=== PATIENT | male | born 1925 | race Caucasian/White ===

== ENCOUNTER 2016-10-12 03:08 | Observation (INO) | payer OTHER, MEDICARE ==
[~2016-10-12] VITALS: Ht 177.8 cm; Wt 86.0 kg
[~2016-10-12 03:08] MED LIST: ALENDRONATE SOD70 MG PO; CARDIZEM LA PO; CARVEDILOL6.25 MG PO; COZAAR100 MG PO; LASIX20 MG PO; LASIX40 MG PO; LATANOPROST0.005 % OP; LEVAQUIN500 MG PO; PLAVIX75 MG PO; PRAVACHOL20 MG PO; PRENATABS RX PO; TRAMADOL HCL50 MG PO; VITAMIN D H1000 UNIT PO; XARELTO10 MG PO
--- NOTE | 2016-10-12 08:39 | ED NURSING NOTES ---
Clinical Report - Nurses [facility] [address] [place] [address] 10/12/2016 3:08 Patient: CONRAD MILTON TRIAGE Triage time 03:14. Acuity: LEVEL 2. Chief Complaint: PAIN TO RIGHT EYE. --03:27 Manjinder aHwkins R.N. 03:14 10/12/16. BP: 175/72. HR: 66. RR: 20. O2 saturation: 95%. Temp: 97.6 F. Pain level now 04/07. --03:27 Manjinder Hawkins R.N. Weight: 81.7 kg stated. Height/Length: 70 inches Per Patient. BMI: 25.8. --03:26 Manjinder Hawkins R.N. Medications Carvedilol Oral (Tablet 6.25 mg) 1 tablet, daily. Furosemide Oral 40 mg, daily. Losartan Potassium Oral 100 mg, daily. Plavix Oral 75 mg, daily. Triamcinolone Acetonide External. Vitamin D Oral. Xarelto Oral (Tablet 10 mg) 1 tablet, daily. --03:18 Manjinder Hawkins R.N. Pravastatin Sodium Oral 20 mg. --03:19 Manjinder Hawkins R.N. Alendronate Sodium Oral (Tablet 70 mg). --03:20 Manjinder Hawkins R.N. Augmentin Oral (Tablet 875-125 mg). --03:21 Manjinder Hawkins R.N. Allergies No Known Drug Allergy. --03:18 Manjinder Hawkins R.N. History Arrived by private vehicle. Historian: patient. Accompanied by family. Primary physician (Corie Guillory). This is a new problem and onset was abrupt. (a week). ( Pt is having pain in the right eye with no vision changes. Pt stated the pain is pulsating and radiates to the side of the head. The eye pain started a week ago. Not photophobia. Pt was just in [place] for sx. Pt stated they removed plaque from the artery in his leg. Pt has a dressing on the right side of the groin that is dry and intact.). 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 PAST MEDICAL HX: Glaucoma. SOCIAL HX: Former smoker. Occasional alcohol use; consumes two beers a day. No drug use. --03:27 Manjinder Hawkins R.N. PROBLEMS: Atypical Chest Pain. Congestive Heart Failure. Vomiting. Cancer. Pneumonia. Changed Mental Status. Weakness. Atrial Fibrillation. Hypertension. Hypercholesterolemia. Glaucoma. --03:25 Manjinder Hawkins R.N. Interventions ID band on patient. To treatment room. --03:27 Manjinder Hawkins R.N. PHYSICAL ASSESSMENT ( Pt is having sharp stabbing pulsating pain in the right eye that radiates into the head. Pt has a dry and intact dressing on the right side of his growing, due to a sx at [place], scrapping out the plaque in the artery. Pt is taking augmentin for an infection in the right foot. Pt has dressing on the big toe and second toe, both are dry and intact.). GENERAL / NEURO / PSYCH: Alert. Appears in no acute distress. Appears in pain. HEENT: No facial asymmetry noted. Pupils equal, round and reactive to light. EOM intact. Right ear within normal limits. Left ear within normal limits. Mouth inspection within normal limits. Pharynx within normal limits. RESPIRATORY: Respirations not labored. CVS: Capillary refill less than 2 seconds. SKIN: Skin is warm and dry. Normal skin turgor. --03:29 Manjinder Hawkins R.N. HEENT: ( Denies any vision changes.). --03:29 Manjinder Hawkins R.N. NURSING PROGRESS NOTES Patient gowned. Head of bed elevated 30 degrees. Reassurance given. Two patient identifiers checked. Call light placed in reach. Side rails up x 2. Bed placed in lowest position. Brakes of bed on. --03:30 Manjinder Hawkins R.N. 04:45 10/12/2016 Site #1 started via IV in the right forearm with an 22g angiocath; one attempt. Blood drawn: rainbow set. Labeled in the presence of the patient and sent to the lab. Saline lock flushed with saline. --04:51 Apollo Goncalves R.N. 04:53 10/12/2016 Morphine IVP 4 mg given over 1 minute(s) via site #1. Allergies verified, confirmed 5 rights and sedative warning given to the patient. IV patency established. IV site checked: no pain, redness, or swelling. IV flushed thoroughly pre- and post-medication administration. IVP given by RN. --04:53 Manjinder Hawkins R.N. 04:57 10/12/2016 FLUORESCEIN Opth soln 1 Strip given. Given in the right eye. Allergies verified and confirmed 5 rights. (done by MD). --04:57 Manjinder Hawkins R.N. 04:57 10/12/2016 Proparacaine Eye Drops 1 drop given. Given in the right eye. Allergies verified and confirmed 5 rights. (done by MD). --04:57 Manjinder Hawkins R.N. 06:32 10/12/2016 Morphine IVP 4 mg given over 1 minute(s) via site #1. Allergies verified, confirmed 5 rights and sedative warning given to the patient and patient's family. IV patency established. IV site checked: no pain, redness, or swelling. IV flushed thoroughly pre- and post-medication administration. IVP given by RN. --06:33 Manjinder Hawkins R.N. ( MD at bedside doing eye exam.). --06:33 Manjinder Hawkins R.N. 06:33 10/12/16. BP: 124/55. HR: 97. RR: 15. O2 saturation: 97%. Pain level now 6/10. --06:33 Manjinder Hawkins R.N. 07:49 10/12/16. ( Pt's too tired to wait, sent home to rest. Pt's visual acuity Right eye 20/200, Left eye 20/50, Both eyes 20/200). --07:49 Brooklyn Ferrer R.N. 07:57 10/12/16. HR: 56. RR: 20. O2 saturation: 100%. --07:58 Brooklyn Ferrer R.N. ( color television console monitor dc'd per verbal order ERMD). --07:58 Brooklyn Ferrer R.N. 08:05 10/12/2016 SOLU-MEDROL (MethylPREDNISolone Sodium Succ) IVP 250 mg given over 5 minute(s) via site #1. Allergies verified and confirmed 5 rights. --08:10 Brooklyn Ferrer R.N. DISPOSITION / DISCHARGE 09:34 10/12/16. Report was given to a nurse via a phone call. Report included patient's care, treatment, medications, reviewed medication reconcilliation, and condition (including any recent changes or anticipated changes). All questions were answered. Report was acknowledged and care was transferred. Bed obtained and ready. --09:34 Brooklyn Ferrer R.N. 09:40 10/12/16. --09:40 Brooklyn Ferrer R.N. 09:39 10/12/16. BP: 131/89. HR: 60 (irregular). RR: 19. O2 saturation: 96%. Temp: 97.7 F. Pain level now: 0/10. --09:40 Brooklyn Ferrer R.N. 09:41 10/12/16. ( FT notified to take pt up to room.). --09:41 Brooklyn Ferrer R.N. 09:52 10/12/16. 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 --09:52 Brooklyn Ferrer R.N. Departure time: 09:52. --09:52 Brooklyn Ferrer R.N. Locked/Released at 10/12/2016 9:53 by Brooklyn Ferrer R.N.
--- NOTE | 2016-10-12 08:39 | ED ORDER SUMMARY ---
..... Patient: CONRAD MILTON OrderSheet [facility] VisitID: [id number] [place] [address] 89y, M Registration Date/Time: 10/12/2016 ORDER SHEET Weight: 81.7 kg (stated) Allergies: No Known Drug Allergy GENERAL ORDERS: CBC w Diff Urgent (03:49 10/12/2016 Mal Hardin) (Ack 3:56 ALawrence ER Tech1) (4:51 DDavis R.N.) CMP Urgent (03:49 10/12/2016 Mal Hardin) (Ack 3:56 ALawrence ER Tech1) (4:51 DDavis R.N.) ESR Urgent (03:49 10/12/2016 Mal Hardin) (Ack 3:56 ALawrence ER Tech1) (4:51 DDavis R.N.) CRP Urgent (03:49 10/12/2016 Mal Hardin) (Ack 3:56 ALawrence ER Tech1) (4:51 DDavis R.N.) Consult - Ophthalmology (06:54 10/12/2016 Mal Hardin) (7:01 TLewis R.N.) Visual Acuity (07:36 10/12/2016 Mal Hardin) (7:54 LSullivan R.N.) PT with INR Urgent (09:07 10/12/2016 Mal Hardin) (Ack 9:16 RKarlynette) (9:53 LSullivan R.N.) PTT Urgent (09:07 10/12/2016 Mal Hardin) (Ack 9:16 RKaruga) (9:53 LSullivan R.N.) MEDICATION ORDERS: Fluorescein Eye Strips 1 strips (bedside) (03:48 10/12/2016 Mal Hardin) (Ack 4:07 HSoule) (4:57 TLewis R.N.) Proparacaine Eye Drops (Solution 0.5 %) 2 drops (place at bedside) (03:49 10/12/2016 Mal Hardin) (Ack 4:07 HSoule) (4:57 TLewis R.N.) IV FLUIDS: Morphine IV 4 mg (HIGH ALERT MEDICATION, NOW) (03:48 10/12/2016 Mal Hardin) (4:53 Ivis R.N.) IV Saline Lock (03:49 10/12/2016 Mal Hardin) (4:51 DDavis R.N.) Morphine IV 4 mg (HIGH ALERT MEDICATION, NOW) (06:16 10/12/2016 Mal Hardin) (6:33 Ivis R.N.) Solu-MEDROL IV 250 mg (NOW) (07:50 10/12/2016 Mal Hardin) (8:10 LSullivan R.N.) ORDER SHEET NOTES: [Electronically signed by Vik Love Dr. (09:38 10/12/2016)] [Electronically signed by Brooklyn Ferrer R.N. (09:53 10/12/2016)] [Electronically locked/signed by Brooklyn Ferrer R.N. (09:53 10/12/2016)]
--- NOTE | 2016-10-12 08:39 | ED ORDER SUMMARY ---
..... Patient: CONRAD MILTON OrderSheet [facility] VisitID: [id number] [place] [address] 89y, M Registration Date/Time: 10/12/2016 ORDER SHEET Weight: 81.7 kg (stated) Allergies: No Known Drug Allergy GENERAL ORDERS: CBC w Diff Urgent (03:49 10/12/2016 Mal Hardin) (Ack 3:56 ALawrence ER Tech1) (4:51 DDavis R.N.) CMP Urgent (03:49 10/12/2016 Mal Hardin) (Ack 3:56 ALawrence ER Tech1) (4:51 DDavis R.N.) ESR Urgent (03:49 10/12/2016 Mal Hardin) (Ack 3:56 ALawrence ER Tech1) (4:51 DDavis R.N.) CRP Urgent (03:49 10/12/2016 Mal Hardin) (Ack 3:56 ALawrence ER Tech1) (4:51 DDavis R.N.) Consult - Ophthalmology (06:54 10/12/2016 Mal Hardin) (7:01 TLewis R.N.) Visual Acuity (07:36 10/12/2016 Mal Hardin) (7:54 LSullivan R.N.) PT with INR Urgent (09:07 10/12/2016 Mal Hardin) (Ack 9:16 RKarlynette) (9:53 LSullivan R.N.) PTT Urgent (09:07 10/12/2016 Mal Hardin) (Ack 9:16 RKaruga) (9:53 LSullivan R.N.) MEDICATION ORDERS: Fluorescein Eye Strips 1 strips (bedside) (03:48 10/12/2016 Mal Hardin) (Ack 4:07 HSoule) (4:57 TLewis R.N.) Proparacaine Eye Drops (Solution 0.5 %) 2 drops (place at bedside) (03:49 10/12/2016 Mal Hardin) (Ack 4:07 HSoule) (4:57 TLewis R.N.) IV FLUIDS: Morphine IV 4 mg (HIGH ALERT MEDICATION, NOW) (03:48 10/12/2016 Mal Hardin) (4:53 Ivis R.N.) IV Saline Lock (03:49 10/12/2016 Mal Hardin) (4:51 DDavis R.N.) Morphine IV 4 mg (HIGH ALERT MEDICATION, NOW) (06:16 10/12/2016 Mal Hardin) (6:33 Ivis R.N.) Solu-MEDROL IV 250 mg (NOW) (07:50 10/12/2016 Mal Hardin) (8:10 LSullivan R.N.) ORDER SHEET NOTES: [Electronically signed by Vik Love Dr. (09:38 10/12/2016)] [Electronically signed by Brooklyn Ferrer R.N. (09:53 10/12/2016)] [Electronically locked/signed by Brooklyn Ferrer R.N. (09:53 10/12/2016)]
--- NOTE | 2016-10-12 08:39 | ED NURSING NOTES ---
Clinical Report - Nurses [facility] [address] [place] [address] 10/12/2016 3:08 Patient: CONRAD MILTON TRIAGE Triage time 03:14. Acuity: LEVEL 2. Chief Complaint: PAIN TO RIGHT EYE. --03:27 Manjinder Hawkins R.N. 03:14 10/12/16. BP: 175/72. HR: 66. RR: 20. O2 saturation: 95%. Temp: 97.6 F. Pain level now 04/07. --03:27 Manjinder Hawkins R.N. Weight: 81.7 kg stated. Height/Length: 70 inches Per Patient. BMI: 25.8. --03:26 Manjinder Hawkins R.N. Medications Carvedilol Oral (Tablet 6.25 mg) 1 tablet, daily. Furosemide Oral 40 mg, daily. Losartan Potassium Oral 100 mg, daily. Plavix Oral 75 mg, daily. Triamcinolone Acetonide External. Vitamin D Oral. Xarelto Oral (Tablet 10 mg) 1 tablet, daily. --03:18 Manjinder Hawkins R.N. Pravastatin Sodium Oral 20 mg. --03:19 Manjinder Hawkins R.N. Alendronate Sodium Oral (Tablet 70 mg). --03:20 Manjinder Hawkins R.N. Augmentin Oral (Tablet 875-125 mg). --03:21 Manjinder Hawkins R.N. Allergies No Known Drug Allergy. --03:18 Manjinder Hawkins R.N. History Arrived by private vehicle. Historian: patient. Accompanied by family. Primary physician (Corie Guillory). This is a new problem and onset was abrupt. (a week). ( Pt is having pain in the right eye with no vision changes. Pt stated the pain is pulsating and radiates to the side of the head. The eye pain started a week ago. Not photophobia. Pt was just in [place] for sx. Pt stated they removed plaque from the artery in his leg. Pt has a dressing on the right side of the groin that is dry and intact.). 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 PAST MEDICAL HX: Glaucoma. SOCIAL HX: Former smoker. Occasional alcohol use; consumes two beers a day. No drug use. --03:27 Manjinder Hawkins R.N. PROBLEMS: Atypical Chest Pain. Congestive Heart Failure. Vomiting. Cancer. Pneumonia. Changed Mental Status. Weakness. Atrial Fibrillation. Hypertension. Hypercholesterolemia. Glaucoma. --03:25 Manjinder Hawkins R.N. Interventions ID band on patient. To treatment room. --03:27 Manjinder Hawkins R.N. PHYSICAL ASSESSMENT ( Pt is having sharp stabbing pulsating pain in the right eye that radiates into the head. Pt has a dry and intact dressing on the right side of his growing, due to a sx at [place], scrapping out the plaque in the artery. Pt is taking augmentin for an infection in the right foot. Pt has dressing on the big toe and second toe, both are dry and intact.). GENERAL / NEURO / PSYCH: Alert. Appears in no acute distress. Appears in pain. HEENT: No facial asymmetry noted. Pupils equal, round and reactive to light. EOM intact. Right ear within normal limits. Left ear within normal limits. Mouth inspection within normal limits. Pharynx within normal limits. RESPIRATORY: Respirations not labored. CVS: Capillary refill less than 2 seconds. SKIN: Skin is warm and dry. Normal skin turgor. --03:29 Manjinder Hawkins R.N. HEENT: ( Denies any vision changes.). --03:29 Manjinder Hawkins R.N. NURSING PROGRESS NOTES Patient gowned. Head of bed elevated 30 degrees. Reassurance given. Two patient identifiers checked. Call light placed in reach. Side rails up x 2. Bed placed in lowest position. Brakes of bed on. --03:30 Manjinder Hawkins R.N. 04:45 10/12/2016 Site #1 started via IV in the right forearm with an 22g angiocath; one attempt. Blood drawn: rainbow set. Labeled in the presence of the patient and sent to the lab. Saline lock flushed with saline. --04:51 Apollo Goncalves R.N. 04:53 10/12/2016 Morphine IVP 4 mg given over 1 minute(s) via site #1. Allergies verified, confirmed 5 rights and sedative warning given to the patient. IV patency established. IV site checked: no pain, redness, or swelling. IV flushed thoroughly pre- and post-medication administration. IVP given by RN. --04:53 Manjinder Hawkins R.N. 04:57 10/12/2016 FLUORESCEIN Opth soln 1 Strip given. Given in the right eye. Allergies verified and confirmed 5 rights. (done by MD). --04:57 Manjinder Hawkins R.N. 04:57 10/12/2016 Proparacaine Eye Drops 1 drop given. Given in the right eye. Allergies verified and confirmed 5 rights. (done by MD). --04:57 Manjinder Hawkins R.N. 06:32 10/12/2016 Morphine IVP 4 mg given over 1 minute(s) via site #1. Allergies verified, confirmed 5 rights and sedative warning given to the patient and patient's family. IV patency established. IV site checked: no pain, redness, or swelling. IV flushed thoroughly pre- and post-medication administration. IVP given by RN. --06:33 Manjinder Hawkins R.N. ( MD at bedside doing eye exam.). --06:33 Manjinder Hawkins R.N. 06:33 10/12/16. BP: 124/55. HR: 97. RR: 15. O2 saturation: 97%. Pain level now 6/10. --06:33 Manjinder Hawkins R.N. 07:49 10/12/16. ( Pt's too tired to wait, sent home to rest. Pt's visual acuity Right eye 20/200, Left eye 20/50, Both eyes 20/200). --07:49 Brooklyn Ferrer R.N. 07:57 10/12/16. HR: 56. RR: 20. O2 saturation: 100%. --07:58 Brooklyn Ferrer R.N. ( telemetry monitor dc'd per verbal order ERMD). --07:58 Brooklyn Ferrer R.N. 08:05 10/12/2016 SOLU-MEDROL (MethylPREDNISolone Sodium Succ) IVP 250 mg given over 5 minute(s) via site #1. Allergies verified and confirmed 5 rights. --08:10 Brooklyn Ferrer R.N. DISPOSITION / DISCHARGE 09:34 10/12/16. Report was given to a nurse via a phone call. Report included patient's care, treatment, medications, reviewed medication reconcilliation, and condition (including any recent changes or anticipated changes). All questions were answered. Report was acknowledged and care was transferred. Bed obtained and ready. --09:34 Brooklyn Ferrer R.N. 09:40 10/12/16. --09:40 Brooklyn Ferrer R.N. 09:39 10/12/16. BP: 131/89. HR: 60 (irregular). RR: 19. O2 saturation: 96%. Temp: 97.7 F. Pain level now: 0/10. --09:40 Brooklyn Ferrer R.N. 09:41 10/12/16. ( FT notified to take pt up to room.). --09:41 Brooklyn Ferrer R.N. 09:52 10/12/16. 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 --09:52 Brooklyn Ferrer R.N. Departure time: 09:52. --09:52 Brooklyn Ferrer R.N. Locked/Released at 10/12/2016 9:53 by Brooklyn Ferrer R.N.
--- NOTE | 2016-10-12 08:39 | ED CLINICAL REPORT ---
Clinical Report - Physicians/Mid Levels [facility] [address] [place] [address] 10/12/2016 3:08 Patient: CONRAD MILTON Arrived- By private vehicle. Historian- patient. HISTORY OF PRESENT ILLNESS Chief Complaint: HEADACHE. Is still present (staying the same). This started about a week. It was gradual in onset and has been constant but is not gone now. Patient was last known well (over a week ago). It is described as sharp. Located in the right temporal region and region of the right eye. No neck pain. Not located in the facial region. At its maximum, severity described as moderate. When seen in the E.D., severity described as moderate. Modifying factors: relieved by nothing. Not worsened by anything. No preceding symptoms, blurred vision, photophobia, associated nausea or numbness. No weakness or vomiting. (reports no symptoms of jaw claudication. Reports having history of shingles and glaucoma however this feels different. Patient was a physical, is well-controlled with eyedrops that he uses every day. Patient states that he has had these eyedrops today. Patient was not other symptoms such as cough, runny nose, congestion, fever, erythema or redness around the area. Patient reports no rash at any time throughout this illness.). No recent travel. Similar symptoms previously: None. Recent medical care: Not recently seen/assessed. REVIEW OF SYSTEMS No chest pain, abdominal pain or skin rash. All systems otherwise negative, except as recorded above. PAST HISTORY See nurses notes. Medications: Augmentin Oral (Tablet 875-125 mg). Alendronate Sodium Oral (Tablet 70 mg). Pravastatin Sodium Oral 20 mg. Carvedilol Oral (Tablet 6.25 mg) 1 tablet, daily. Furosemide Oral 40 mg, daily. Losartan Potassium Oral 100 mg, daily. Plavix Oral 75 mg, daily. Triamcinolone Acetonide External. Vitamin D Oral. Xarelto Oral (Tablet 10 mg) 1 tablet, daily. Allergies: No Known Drug Allergy. SOCIAL HISTORY Former smoker. No alcohol use or drug use. No recent travel. Is a local resident. Patient has been for 69 years. FAMILY HISTORY Negative. ADDITIONAL NOTES The nursing notes have been reviewed. PHYSICAL EXAM Vital Signs: 10/12/2016 03:14 BP: 175/72. HR: 66. RR: 20. O2 saturation: 95%. Temp: 97.6 F. Oxygen saturation normal. Appearance: Alert. No acute distress. Head: Mild right-sided temporal artery tenderness. No swelling or redness in the area of the right temporal artery. Eyes: Pupils equal, round and reactive to light. No conjunctival findings. (forcing examination reveals negative Evelyn sign. No uptake. No corneal abrasions/ulcers. No signs of dendritic pattern with the floor seen. Negative cell and flare. No foreign bodies. No conjunctival injection. Pupils are equally round and reactive to light. Theiris is not hot and steamy. Normal lids, lacrimals, and lashes. No discharge. Pressure in the right eye is 8 and pressure in the left eye is 17. Visual acuity as noted per nursing staff notes.). ENT: Ears normal. Nose normal. Pharynx normal. Neck: Normal inspection. Neck supple. CVS: Normal heart rate and rhythm. Heart sounds normal. Pulses normal. Respiratory: No respiratory distress. Breath sounds normal. Abdomen: Soft and nontender. No organomegaly. Skin: Skin warm and dry. Normal skin color. No rash. Normal skin turgor. Extremities: Extremities exhibit normal ROM. No lower extremity edema. Neuro: Oriented X 3. Alert. Mood/affect normal. Speech normal. Cranial nerves normal (as tested). No cerebellar findings. No motor deficit. No sensory deficit. Reflexes normal. LABS, X-RAYS, AND EKG Laboratory Tests: CBC w Diff: (JULIAN: 10/12/2016 04:45) ( MsgRcvd 10/12/2016 05:41) Final results Test Result Flag Units (Reference) WHITE BLOOD COUNT 1.8 L K/uL (4.5-11.5) RED BLOOD COUNT 3.14 L M/uL (4.50-5.90) HEMOGLOBIN 10.9 L gm/dL (13.5-17.5) HEMATOCRIT 31.4 L % (41.0-53.0) MEAN CELL VOLUME 100 fL (80-100) MEAN CORPUSCULAR HGB 35 H pg (26-34) MEAN CORPUSCULAR HGB CONC 35 g/dL (31-37) RED CELL DISTRIBUTION WIDTH 14.1 % (11.6-14.8) PLATELET COUNT 177 K/uL (150-400) SED RATE WESTERGREN 73 H mm/hr (0-20) POLY % 59 % (50-75) BAND % 0 % (0-8) LYMPH 30 % (25-40) MONO 11 % (3-14) EOSINOPHIL % 0 % (0-4) BASOPHIL % 0 % (0-2) METAMYELOCYTE % 0 % (0-1) MYELOCYTE 0 % (0-1) OTHER CELL TYPE 0 CMP: (JULIAN: 10/12/2016 04:45) ( MsgRcvd 10/12/2016 05:13) Final results Test Result Flag Units (Reference) GLUCOSE 100 mg/dL (70-110) BUN 45 H mg/dL (7-18) CREATININE 1.9 H mg/dL (0.6-1.3) Estimated GFR 35.65 mL/min Estimated GFR- 43.21 mL/min Note: Persistent reduction over 3 months in eGFR<60 mL/min/1.73 m2 defines CKD. Patients with eGFR values>=60 mL/min/1.73 m2 may also have CKD if evidence ofpersistent proteinuria. Additional information may be foundat www.kidney.org. SODIUM 136 mmol/L (136-145) POTASSIUM 4.9 mmol/L (3.5-5.1) CHLORIDE 100 mmol/L (98-107) CARBON DIOXIDE 24 mmol/L (21-32) CALCIUM 9.1 mg/dL (8.5-10.1) TOTAL PROTEIN 7.0 g/dL (6.4-8.2) ALBUMIN 3.3 g/dL (3.3-5.0) BILIRUBIN, TOTAL 0.8 mg/dL (0.0-1.0) ALKALINE PHOSPHATASE 70 U/L (46-116) AST (SGOT) 15 U/L (15-37) ALT (SGPT) 11 L U/L (12-78) C-REACTIVE PROTEIN 6.4 H mg/dL (0.0-0.9) . PROGRESS AND PROCEDURES Course of Care: The patient is a pleasant 89-year-old female with complex past medical history presenting for evaluation of right-sided headache. At this time, differential diagnosis includes glaucoma, corneal abrasion, or temporal arteritis. No other findings noted on patient examination. No evidence of herpes zoster. Patient is agreeable to the treatment plan. Blood work and pain medication ordered. symptoms are not consistent with subarachnoid hemorrhage, increased intracranial pressure, or meningitis. Patient's workup is remarkable for elevation and inflammatory markers. Patient is also noted to have a low white blood cell count. WBC is noted to be 1.8. Records from [place] indicate the patient has a history of neutropenia. Appears to be somewhat stable. Had discussion with ophthalmology in reverse the patient's abnormal findings and concern for temporal arteritis. Recommended patient to have steroids and obtain a temporal artery biopsy. Patient to follow-up in the clinic afterwards. Was able to speak with Dr. Mathias from general surgery who is agreeable to taking the patient and performing a biopsy of the temporal artery dissector noon. Spoke with the hospitalist who looks at the patient under their service under observation. Patient is agreeable to treatment plan after discussing patient's workup, diagnosis, plan of care. All questions have been answered. The patient expressed understanding of these instructions and was agreeable to them. Did not fill patient has meningitis or more sinister type of infection or other etiology for her symptoms today. Patient has been afebrile here in the emergency department. Steroids had been given. Consult obtained from ophthamology and surgery. Case discussed. Disposition: Observation in Acute Care. (Electronically signed by Vik Love Dr. 10/12/2016 9:38)
--- NOTE | 2016-10-12 09:54 | ED MAR SUMMARY ---
..... Medication Administration Record [facility] [address] [place] [address] Patient: CONRAD MILTON Visit ID: [id number] 89y, M Weight: 81.7 kg Height/Length: 70 in BMI: 25.8 ALLERGIES: No Known Drug Allergy Given 04:53 10/12/2016 Manjinder Hawkins R.N. Medication Administered: MORPHINE [IVP], Dose: 4 mg IVP over 1 minute(s), Site: #1 right forearm. Medication Ordered: Morphine IV 4 mg (HIGH ALERT MEDICATION, NOW). Given 04:57 10/12/2016 Manjinder Hawkins R.N. Medication Administered: FLUORESCEIN [EYE STRIPS], Dose: 1 Strip Opth soln. Medication Ordered: Fluorescein Eye Strips 1 strips (bedside). Given 04:57 10/12/2016 Manjinder Hawkins R.N. Medication Administered: PROPARACAINE [EYE DROPS], Dose: 1 drop Eye Drops. Medication Ordered: Proparacaine Eye Drops (Solution 0.5 %) 2 drops (place at bedside). Given 06:32 10/12/2016 Manjinder Hawkins R.N. Medication Administered: MORPHINE [IVP], Dose: 4 mg IVP over 1 minute(s), Site: #1 right forearm. Medication Ordered: Morphine IV 4 mg (HIGH ALERT MEDICATION, NOW). Given 08:05 10/12/2016 Brooklyn Ferrer R.N. Medication Administered: SOLU-MEDROL [IVP] (METHYLPREDNISOLONE SODIUM SUCC), Dose: 250 mg IVP over 5 minute(s), Site: #1 right forearm. Medication Ordered: Solu-MEDROL IV 250 mg (NOW).
--- NOTE | 2016-10-12 09:54 | ED MED RECONCILIATION SUMMARY ---
Patient: CONRAD MILTON Medication Reconciliation Report [facility] VisitID: [id number] [place] [address] 89y, M Registration Date/Time: 10/12/2016 Weight: 81.7 kg Height/Length: 70 in. BMI: 25.8 ALLERGIES: No Known Drug Allergy The patient's Home Medications are listed below: THE FOLLOWING MEDICATIONS NEED TO BE RECONCILED: Alendronate Sodium Oral (70 mg) Augmentin Oral (875-125 mg) Carvedilol Oral (6.25 mg) 1 tablet, daily Furosemide Oral 40 mg, daily Losartan Potassium Oral 100 mg, daily Plavix Oral 75 mg, daily Pravastatin Sodium Oral 20 mg Triamcinolone Acetonide External Vitamin D Oral Xarelto Oral (10 mg) 1 tablet, daily The source(s) of the original Home Medication information: Not obtained. The following Medications were given to the patient in the Emergency Department: Morphine [IVP] IVP 4 mg, administered: 10/12/2016 4:53:00 AM FLUORESCEIN [EYE STRIPS] Opth soln 1 Strip, administered: 10/12/2016 4:57:00 AM Proparacaine [Eye Drops] Eye Drops 1 drop, administered: 10/12/2016 4:57:00 AM Morphine [IVP] IVP 4 mg, administered: 10/12/2016 6:32:00 AM SOLU-MEDROL [IVP] IVP 250 mg, administered: 10/12/2016 8:05:00 AM The following Medications were prescribed to the patient: None.
--- NOTE | 2016-10-12 09:54 | ED MAR SUMMARY ---
..... Medication Administration Record [facility] [address] [place] [address] Patient: CONRAD MILTON Visit ID: [id number] 89y, M Weight: 81.7 kg Height/Length: 70 in BMI: 25.8 ALLERGIES: No Known Drug Allergy Given 04:53 10/12/2016 Manjinder Hawkins R.N. Medication Administered: MORPHINE [IVP], Dose: 4 mg IVP over 1 minute(s), Site: #1 right forearm. Medication Ordered: Morphine IV 4 mg (HIGH ALERT MEDICATION, NOW). Given 04:57 10/12/2016 Manjinder Hawkins R.N. Medication Administered: FLUORESCEIN [EYE STRIPS], Dose: 1 Strip Opth soln. Medication Ordered: Fluorescein Eye Strips 1 strips (bedside). Given 04:57 10/12/2016 Manjinder Hawkins R.N. Medication Administered: PROPARACAINE [EYE DROPS], Dose: 1 drop Eye Drops. Medication Ordered: Proparacaine Eye Drops (Solution 0.5 %) 2 drops (place at bedside). Given 06:32 10/12/2016 Manjinder Hawkins R.N. Medication Administered: MORPHINE [IVP], Dose: 4 mg IVP over 1 minute(s), Site: #1 right forearm. Medication Ordered: Morphine IV 4 mg (HIGH ALERT MEDICATION, NOW). Given 08:05 10/12/2016 Brooklyn Ferrer R.N. Medication Administered: SOLU-MEDROL [IVP] (METHYLPREDNISOLONE SODIUM SUCC), Dose: 250 mg IVP over 5 minute(s), Site: #1 right forearm. Medication Ordered: Solu-MEDROL IV 250 mg (NOW).
--- NOTE | 2016-10-12 09:54 | ED MED RECONCILIATION SUMMARY ---
Patient: CONRAD MILTON Medication Reconciliation Report [facility] VisitID: [id number] [place] [address] 89y, M Registration Date/Time: 10/12/2016 Weight: 81.7 kg Height/Length: 70 in. BMI: 25.8 ALLERGIES: No Known Drug Allergy The patient's Home Medications are listed below: THE FOLLOWING MEDICATIONS NEED TO BE RECONCILED: Alendronate Sodium Oral (70 mg) Augmentin Oral (875-125 mg) Carvedilol Oral (6.25 mg) 1 tablet, daily Furosemide Oral 40 mg, daily Losartan Potassium Oral 100 mg, daily Plavix Oral 75 mg, daily Pravastatin Sodium Oral 20 mg Triamcinolone Acetonide External Vitamin D Oral Xarelto Oral (10 mg) 1 tablet, daily The source(s) of the original Home Medication information: Not obtained. The following Medications were given to the patient in the Emergency Department: Morphine [IVP] IVP 4 mg, administered: 10/12/2016 4:53:00 AM FLUORESCEIN [EYE STRIPS] Opth soln 1 Strip, administered: 10/12/2016 4:57:00 AM Proparacaine [Eye Drops] Eye Drops 1 drop, administered: 10/12/2016 4:57:00 AM Morphine [IVP] IVP 4 mg, administered: 10/12/2016 6:32:00 AM SOLU-MEDROL [IVP] IVP 250 mg, administered: 10/12/2016 8:05:00 AM The following Medications were prescribed to the patient: None.
--- NOTE | 2016-10-12 10:00 | NUR ---
RECEIVED PT FROM ED VIA STRETCHER. AWAKE AND ALERT. ABLE TO TRANSFER SELF FROM STRETCHER TO BED WITH AN UNSTEADY GAIT. DENIES RIGHT EYE OR HEAD PAIN @ THIS TIME. SKIN DRY, THIN AND FRAGILE. MULTIPLE SCATTERED BRUISES ON FACE AND BLE'S. HEALING SURGICAL WOUND IN RIGHT GROIN FROM FEMORAL ANGIOPLASTY SEVERAL DAYS AGO. DRESSING TO RIGHT 2ND TOE CDI. POOR HISTORIAN, BUT ABLE TO MAKE NEEDS KNOWN. USES THE CALL LIGHT APPROPRIATELY. FAMILY AT THE BEDSIDE.
[2016-10-12 10:05] VITALS: BP 173/75
--- NOTE | 2016-10-12 12:00 | NUR ---
BIOPSY TO RIGHT TEMPORAL ARTERY BEING HELD OFF UNTIL SATURDAY. INR 2.1 AND PT STATES HE TAKES PLAVIX AND XERALTO. MD ORDER TO HOLD BOTH MEDS.
--- NOTE | 2016-10-12 13:36 | History & Physical Report ---
Information Source Information Source: Self Reliability: Fair History Chief Complaint headaches and facial pain History of Present Illness Patient is a 89 year old male with a pmh of atrial fibrillation, hypertension, peripheral vascular disease and hyperlipidemia, that is presenting with a 3 day history of facial pain and headaches. Patient was recently in the hospital for angiogram or his lower extremities with angioplasty for correction of his PAD. Patient tolerated the procedure well however after the procedure the patient began to notice that he was having occasional bouts of facial pain and a headaches that was unlike any headache he had in the past. Patient attmepted to take over the counter anelgesics for the headache and pain with little to no relief. Patient then began to notice that he was having vision changes that were different the glaucoma that he was experiencing. Patient became worried that this was something more severe and decided to come to the hospital. Patient is a poor historian and a lot of this information could not be corroborated with the family. Patient History 1. Generalized headaches 2. Temporal arteritis 3. CHF (congestive heart failure) 4. Hyperlipidemia 5. Hypertension 6. Atrial fibrillation Social History Patient currently lives at home with his . He maintains all his daily ADLs with his wifes assistance. He does not smoke currently but has a 15 year smoking history which ended in 1978. Patient does not drink or use illicit substances. Family History FATHER, , Age 47; Cause: Drowned. MOTHER, , Age 77; Cause: Diabetes. Medications and Allergies Medications Home Medications Xarelto 20 mg daily Carvedilol 6.25 mg daily furosemide 29 mg daily clopidogrel 75 mg daily losartan 100 mg daily Alendronate 70 mg/week Current Medications Sig/Max Start time Last Medication Dose Route Stop Time Status Admin Prednisone 60 MG DAILY 10/13 0900 AC PO Sodium Chloride 250 ML .[FOR TRANSFUSION] 10/12 1215 AC IV Acetaminophen 650 MG Q6H PRN 10/12 1030 AC PO Morphine Sulfate 1 MG Q30MIN PRN 10/12 1030 AC IV Sodium Chloride 1,000 ML ASDIRECTED 10/12 1030 AC IV Ondansetron HCl 4 MG Q8H PRN 10/12 0915 AC IV Allergies Coded Allergies: Clotrimazole (10/12/16) Warfarin and Related (10/12/16) Review of Systems Constitutional Denies: Fever, Chills, Sweats, Weakness, Malaise, Other. Eyes Denies: Pain, Vision Change, Conjunctival Inflammation, Eyelid Inflammation, Redness, Other. ENT Denies: Ear Pain, Ear Discharge, Nose Pain, Nasal Discharge, Nasal Congestion, Mouth Pain, Mouth Swelling, Throat Pain, Throat Swelling, Other. Respiratory Denies: Cough, Dry, SOB w/exertion, Wheezing, Hemoptysis, Pleuritic Pain, Sputum , Other. Cardiovascular Denies: Chest Pain, Palpitations, Orthopnea, PND, Edema, Light-headedness, Other. Gastrointestinal Denies: Nausea, Vomiting, Abdominal Pain, Diarrhea, Constipation, Melena, Hematochezia, Other. Genitourinary Denies: Dysuria, Frequency, Incontinence, Hematuria, Retention, Other. Musculoskeletal Denies: Neck Pain, Shoulder Pain, Arm Pain, Back Pain, Hand Pain, Leg Pain, Foot Pain, Other. Skin Denies: Rash, Lesions, Jaundice, Bruising, Other. Neurological Other (headaches, facial pain ). Denies: Weakness, Numbness, Incoordination, Change in speech, Confusion, Seizures. Physical Exam Vital Signs / I&Os Vital Signs Date Time Temp Pulse Resp B/P Pulse O2 O2 Flow FiO2 Ox Delivery Rate 10/12 1501 97.9 65 20 129/61 95 10/12 1443 98.2 64 20 131/60 96 10/12 1437 98.2 64 20 131/60 96 10/12 1100 Room Air 10/12 1005 98.2 65 21 173/75 95 General Appearance Alert, Oriented X3, No acute distress HEENT EOMI, Moist mucous membranes, - multiple areas of ecchymosis present on admission, patient has ecchymotic lesions on the cheeks, with some skin abrain on the right side of the face Lungs Clear to auscultation, Normal air movement Neck No JVD, No masses, No lymphadenopathy, 2+ carotid pulse wo bruit Cardiovascular - irregularly irregular heart beat - no murmurs appreciated Abdomen Soft, No tenderness, No rebound, No masses, No hepatosplenomegaly Extremities No clubbing, No edema, Normal pulses, No tenderness, Strength = upper ext's, Strength = lower ext's Skin No Breakdown, No Significant Lesions Neurological Normal tone, Sensation intact, Reflexes 2+ and equal, Cranial nerves intact, Strength 5/5 x4 ext's, No lateralizing signs Psych/Mental Status Mood normal LAB Results Laboratory Tests 10/12 0445 Chemistry Plasma Sodium (136 - 145 mmol/L) 136 Plasma Potassium (3.5 - 5.1 mmol/L) 4.9 Plasma Chloride (98 - 107 mmol/L) 100 CO2 (Enzymatic) (21 - 32 mmol/L) 24 BUN (7 - 18 mg/dL) 45 Creatinine (0.6 - 1.3 mg/dL) 1.9 Est GFR ( Amer) (mL/min) 43.21 Est GFR (Non-Af Amer) (mL/min) 35.65 Glucose (70 - 110 mg/dL) 100 Plasma Calcium (8.5 - 10.1 mg/dL) 9.1 Total Bilirubin (0.0 - 1.0 mg/dL) 0.8 AST (15 - 37 U/L) 15 ALT (12 - 78 U/L) 11 Alkaline Phosphatase (46 - 116 U/L) 70 C-Reactive Protein (0.0 - 0.9 mg/dL) 6.4 Total Protein (6.4 - 8.2 g/dL) 7.0 Albumin (3.3 - 5.0 g/dL) 3.3 Coagulation INR (0.8 - 1.2) 2.1 APTT (24 - 34 SECONDS) 43 Hematology WBC (4.5 - 11.5 K/uL) 1.8 RBC (4.50 - 5.90 M/uL) 3.14 Hgb (13.5 - 17.5 gm/dL) 10.9 Hct (41.0 - 53.0 %) 31.4 MCV (80 - 100 fL) 100 MCH (26 - 34 pg) 35 RDW (11.6 - 14.8 %) 14.1 Neut % (Auto) (50 - 75 %) 59 Lymph % (Auto) (25 - 40 %) 30 [place] % (Auto) (3 - 14 %) 11 Eos % (Auto) (0 - 4 %) 0 Baso % (Auto) (0 - 2 %) 0 Band Neutrophils % (0 - 8 %) 0 Metamyelocytes % (0 - 1 %) 0 Myelocytes (0 - 1 %) 0 Other Cell Type 0 Plt Count, EDTA (150 - 400 K/uL) 177 PUBS MCHC (31 - 37 g/dL) 35 ESR Westergren (0 - 20 mm/hr) 73 Microbiology Date/Time Procedure - Status Source Growth 10/12 6585 MRSA Screen - COLB NASAL Assessment and Plan Problem List 1. Generalized headaches Plan - pt has been having a generalized headaches with no relief for the past 3 days - this differs from patients usual presentation of a headaches which is additionally responsive to medication - will provide acetaminophen for pain symptoms. however they have been decreasing since patient received steroids. 2. Temporal arteritis Plan - pt has generalized headache, facial pain, and elevated esr and CRP - given constellation patient is at a high risk of temporal arteritis - pt given high dose prednisone already - will c/w 60 mg of prednisone daily - will make arrangements for biopsy however due to recent anticoagulation use will attempt biopsy on saturday 3. Atrial fibrillation Status Chronic Onset Date Unknown Plan - pt has an established history of atrial fibrillation - pt is currently rate controlled - will resume all meds except for blood thinners 4. Hypertension Status Acute Onset Date Unknown Plan - will resume home medications for hypertension
[2016-10-12 14:37] VITALS: BP 131/60
[2016-10-12 14:43] VITALS: BP 131/60
[2016-10-12 15:01] VITALS: BP 129/61
[2016-10-12 18:46] VITALS: BP 139/60
[2016-10-13] VITALS (7 sets, daily range): BP systolic 121–153; BP diastolic 41–77
--- NOTE | 2016-10-13 05:34 | NUR ---
PHOTOS OF WOUNDS TAKEN, PRINTED AND PLACED IN CHART. WOUND NURSE CONSULT ENTERED.
--- NOTE | 2016-10-13 16:50 | Progress Note ---
Subjective General Pt seen and examined. Patients facial pain and headaches have all resolved. Patient has no complaints at the present time. Constitutional Weakness, Malaise. Denies: Fever, Chills, Sweats, Other. Eyes Denies: Pain, Vision Change, Conjunctival Inflammation, Eyelid Inflammation, Redness, Other. ENT Denies: Ear Pain, Ear Discharge, Nose Pain, Nasal Discharge, Nasal Congestion, Mouth Pain, Mouth Swelling, Throat Pain, Throat Swelling, Other. Respiratory Denies: Cough, Dry, SOB w/exertion, Wheezing, Hemoptysis, Pleuritic Pain, Sputum , Other. Cardiovascular Denies: Chest Pain, Palpitations, Orthopnea, PND, Edema, Light-headedness, Other. Gastrointestinal Denies: Nausea, Vomiting, Abdominal Pain, Diarrhea, Constipation, Melena, Hematochezia, Other. Genitourinary Denies: Dysuria, Frequency, Incontinence, Hematuria, Retention, Other. Skin Denies: Rash, Lesions, Jaundice, Bruising, Other. Neurological Denies: Weakness, Numbness, Incoordination, Change in speech, Confusion, Seizures, Other. Physical Exam Vital Signs / I&Os Vital Signs Date Time Temp Pulse Resp B/P Pulse O2 O2 Flow FiO2 Ox Delivery Rate 10/13 1430 97.5 72 20 127/54 95 Room Air 10/13 1041 97.5 74 20 139/72 95 Room Air 10/13 0902 Room Air 10/13 0834 84 10/13 0627 97.7 73 21 151/56 94 Room Air 10/13 0312 98.4 77 18 121/41 93 Room Air 10/13 0011 97.9 80 16 124/51 92 Room Air 10/12 2035 Room Air 10/128 80 10/12 1846 98.4 83 18 139/60 95 I&O 10/12 0800 10/12 1600 10/13 0000 Intake Total 550 240 Output Total 550 Balance 0 240 General Appearance Alert, Oriented X3, No acute distress HEENT PERRLA, EOMI, Moist mucous membranes, - bilateral eccymosis present on admission, secondary to tape placement , - no conjuvtival injection Lungs Clear to auscultation, Normal air movement Neck No JVD, No masses Cardiovascular No murmurs, gallops, rubs, - irregularly irregular rhythm Abdomen Soft, No tenderness, No rebound, No masses Extremities No clubbing, No edema, Normal pulses, No tenderness, Strength = upper ext's, Strength = lower ext's Skin No Breakdown, No Significant Lesions Neurological Normal speech, Normal tone, Sensation intact, Reflexes 2+ and equal , Cranial nerves intact, No lateralizing signs Psych/Mental Status Mood normal, Confused LAB Results Laboratory Tests 10/13 0611 Chemistry Plasma Sodium (136 - 145 mmol/L) 139 Plasma Potassium (3.5 - 5.1 mmol/L) 4.7 Plasma Chloride (98 - 107 mmol/L) 105 CO2 (Enzymatic) (21 - 32 mmol/L) 20 BUN (7 - 18 mg/dL) 46 Creatinine (0.6 - 1.3 mg/dL) 1.6 Est GFR ( Amer) (mL/min) 52.69 Est GFR (Non-Af Amer) (mL/min) 43.47 Glucose (70 - 110 mg/dL) 135 Plasma Calcium (8.5 - 10.1 mg/dL) 8.8 Plasma Magnesium (1.8 - 2.4 mg/dL) 2.3 Total Bilirubin (0.0 - 1.0 mg/dL) 0.5 AST (15 - 37 U/L) 21 ALT (12 - 78 U/L) 16 Alkaline Phosphatase (46 - 116 U/L) 68 Total Protein (6.4 - 8.2 g/dL) 6.6 Albumin (3.3 - 5.0 g/dL) 3.2 Coagulation INR (0.8 - 1.2) 1.2 Hematology WBC (4.5 - 11.5 K/uL) 4.2 RBC (4.50 - 5.90 M/uL) 3.05 Hgb (13.5 - 17.5 gm/dL) 10.4 Hct (41.0 - 53.0 %) 30.7 MCV (80 - 100 fL) 101 MCH (26 - 34 pg) 34 RDW (11.6 - 14.8 %) 14.1 Neut % (Auto) (50 - 75 %) 89.2 Lymph % (Auto) (25 - 40 %) 6.3 [place] % (Auto) (3 - 14 %) 4.5 Eos % (Auto) (0 - 4 %) 0 Baso % (Auto) (0 - 2 %) 0 Plt Count, EDTA (150 - 400 K/uL) 173 PUBS MCHC (31 - 37 g/dL) 34 Assessment and Plan Problem List 1. Generalized headaches Plan - most likely secondary to temporal arteritis - facial pain gone after initial dose of steroids - will plan for biopsy tomorrow 2. Atrial fibrillation Status Chronic Onset Date Unknown Plan - stable - will hold blood thinner 3. Hypertension Status Acute Onset Date Unknown Plan - c/w home medications for the time being
--- NOTE | 2016-10-13 18:34 | NUR ---
PT HAS DENIED EYE OR HEAD PAIN. PLEASANT AND COOPERATIVE. APPETITE EXCELLENT. SBA FOR ADL'S AND TRANSFERS.
[2016-10-14] VITALS (8 sets, daily range): BP systolic 123–182; BP diastolic 59–92
--- NOTE | 2016-10-14 09:00 | NUR ---
OOB IN CHAIR VISITING WITH FAMILY. AWAITING SURGICAL BIOPSY PROCEDURE OF RIGHT TEMPORAL ARTERY @ 1000. DENIES PAIN FOR DISCOMFORT. WCTM.
[2016-10-14] MEDS ORDERED: HYCET1 ML PO (10:55)
--- NOTE | 2016-10-14 10:58 | Provider's Discharge Care Plan ---
Problem, Goal, Plan Problem List 1. S/P RIGHT TEMPORAL ARTERY BX Goals: Diagnostic testing Instructions: Follow up as directed, Take meds as directed
--- NOTE | 2016-10-14 10:58 | Provider's Discharge Care Plan ---
Problem, Goal, Plan Problem List 1. S/P RIGHT TEMPORAL ARTERY BX Goals: Diagnostic testing Instructions: Follow up as directed, Take meds as directed
--- NOTE | 2016-10-14 11:04 | NUR ---
PT RECEIVED TO PACU AWAKE AND COMPLAINING OF PAIN IN RIGHT EYE. STATES "I FEEL LIKE YOU DRAGGED ME THROUGH THE MUD. AND IT SMELLS LIKE IT, TOO" HOB ELEVATED, ICE TO RIGHT ZOROASTRIANISM. PT VOIDED PER URINAL. PAIN NOW REPORTED "VERY MILD", DENIES NAUSEA. VSS.
--- NOTE | 2016-10-14 11:30 | NUR ---
RECIEVED FROM PACU AWAKE AND ALERT. ABLE TO TRANSFER FROM STRETCHER TO BED WITH SBA. RIGHT TEMPORAL AREA COVERED WITH 2X2 DRESSING, CDI. ICE PACK PLACED TO THE AREA. DENIES PAIN AT THIS TIME. FRANCISCA.
--- NOTE | 2016-10-14 13:19 | OPERATIVE REPORT ---
DATE OF SURGERY: 10/14/2016 SURGEON: Martha Mathias III, MD TECHNICAL DATA ANALYST: None. PREOPERATIVE DIAGNOSIS: 1. Rule out temporal artery arteritis POSTOPERATIVE DIAGNOSIS: 1. Rule out temporal artery arteritis PROCEDURE PERFORMED: 1. Right temporal artery biopsy ANESTHESIA: TIVA, local, 1% Xylocaine with epinephrine, 0.5% Marcaine with epinephrine. INDICATIONS: The patient is an 89-year-old male admitted on 10/13/2015 from the emergency room with severe right ocular pain. He has some loss of vision in that eye secondary to previous shingle attack. He was administered steroids in the emergency department and admitted for a temporal artery biopsy. Unfortunately, he was on Plavix and carvedilol, with an INR of 2.0, so his surgery was delayed for 48 hours. SURGICAL FINDINGS: Grossly normal-appearing artery. SURGICAL TECHNIQUE: The patient was brought to the operating room and placed in the dorsal supine position where his face and head was turned to the left. He was administered TIVA by anesthesia. After proper anesthesia had taken effect, the patient's right side of his face and preauricular and temporal region were prepped using Betadine and draped in a sterile fashion. The artery in the preauricular region was palpated, the area infiltrated using 1% Xylocaine with epinephrine and 0.5% Marcaine with epinephrine. An incision was made over this site, carried down through skin and subcutaneous tissue. Then, using blunt dissection, we were able to dissect down onto the vessel. Small bleeders were identified and cauterized using electrocautery. Proximal and distal control of the artery was obtained using 3-0 Vicryl ties. The artery was then transected proximally and distally, handed off the field and sent to pathology. Hemostasis was assured. The skin was approximated using 4-0 subdermal Polysorb and Steri- Strips. A sterile pressure occlusive dressing was placed over the site. The patient tolerated the procedure well and was transferred to the recovery room in stable condition. There were no intraoperative or anesthetic complications.
[2016-10-14] MEDS ORDERED: PREDNISONE20 MG PO (15:59)
[2016-10-14] MEDS ORDERED: DELTASONE20 MG PO (15:59)
[2016-10-14] MEDS ORDERED: PREDNISONE50 MG PO (15:59)
--- NOTE | 2016-10-14 16:00 | Progress Note ---
Subjective General Patient doing well, surgical site looks appropriate will discharge later. Constitutional Denies: Fever, Chills, Sweats, Weakness, Malaise, Other. Eyes Denies: Pain, Vision Change, Conjunctival Inflammation, Eyelid Inflammation, Redness, Other. Respiratory Denies: Cough, Dry, SOB w/exertion, Wheezing, Hemoptysis, Pleuritic Pain, Sputum , Other. Cardiovascular Denies: Chest Pain, Palpitations, Orthopnea, PND, Edema, Light-headedness, Other. Genitourinary Denies: Dysuria, Frequency, Incontinence, Hematuria, Retention, Other. Musculoskeletal Denies: Neck Pain, Shoulder Pain, Arm Pain, Back Pain, Hand Pain, Leg Pain, Foot Pain, Other. Skin Bruising. Physical Exam Vital Signs / I&Os Vital Signs Date Time Temp Pulse Resp B/P Pulse O2 O2 Flow FiO2 Ox Delivery Rate 10/14 1430 97.5 60 16 142/69 99 Room Air 10/14 1355 72 16 144/59 98 Room Air 10/14 1340 109 16 123/68 91 Room Air 10/14 1326 66 16 134/65 93 Room Air 10/14 1222 94 10/14 1220 77 16 161/86 90 Room Air 10/14 1147 97.5 106 16 182/78 97 Room Air 10/14 1130 67 15 179/68 95 Nasal 2.0 Cannula 10/14 1125 97.5 67 12 163/95 93 Nasal 2.0 Cannula 10/14 1120 97.5 73 16 181/100 94 Nasal 2.0 Cannula 10/14 1115 76 16 165/84 95 Nasal 2.0 Cannula 10/14 1110 73 17 165/84 96 Nasal 2.0 Cannula 10/14 1105 71 18 147/77 95 Nasal 2.0 Cannula 10/14 1100 73 18 127/79 90 Nasal 2.0 Cannula 10/14 1055 97.2 79 20 134/76 95 10/14 0908 68 03 0900 Room Air 10/14 0659 97.9 64 21 177/92 97 Room Air 10/14 0556 64 10/14 0241 97.7 55 20 159/74 96 Room Air 10/13 2218 97.9 78 20 146/77 97 Room Air 10/13 2040 Room Air 10/13 1812 97.5 128 20 153/65 91 Room Air I&O 10/13 0800 10/13 1600 10/14 0000 Intake Total 4588 081 8559 Output Total 650 200 Balance 0058 117 5465 General Appearance Alert, Oriented X3, No acute distress HEENT PERRLA, - ecchymosis as mentioned before Neck No JVD, No lymphadenopathy Cardiovascular Normal S1 and S2, No murmurs, gallops, rubs Abdomen Soft, No rebound, No hepatosplenomegaly Extremities No clubbing, Normal pulses, No tenderness, Strength = upper ext's, Strength = lower ext's Skin No Breakdown, No Significant Lesions Neurological Normal speech, Cranial nerves intact, Strength 5/5 x4 ext's, No lateralizing signs Psych/Mental Status Mental status normal, Mood normal LAB Results Laboratory Tests 10/14 0535 Chemistry Plasma Sodium (136 - 145 mmol/L) 140 Plasma Potassium (3.5 - 5.1 mmol/L) 4.3 Plasma Chloride (98 - 107 mmol/L) 108 CO2 (Enzymatic) (21 - 32 mmol/L) 21 BUN (7 - 18 mg/dL) 46 Creatinine (0.6 - 1.3 mg/dL) 1.4 Est GFR ( Amer) (mL/min) >60 Est GFR (Non-Af Amer) (mL/min) 50.72 Glucose (70 - 110 mg/dL) 120 Plasma Calcium (8.5 - 10.1 mg/dL) 8.7 Total Bilirubin (0.0 - 1.0 mg/dL) 0.4 AST (15 - 37 U/L) 31 ALT (12 - 78 U/L) 30 Alkaline Phosphatase (46 - 116 U/L) 57 Total Protein (6.4 - 8.2 g/dL) 6.2 Albumin (3.3 - 5.0 g/dL) 2.8 Coagulation INR (0.8 - 1.2) 1.2 Hematology WBC (4.5 - 11.5 K/uL) 4.0 RBC (4.50 - 5.90 M/uL) 2.85 Hgb (13.5 - 17.5 gm/dL) 9.7 Hct (41.0 - 53.0 %) 28.8 MCV (80 - 100 fL) 101 MCH (26 - 34 pg) 34 RDW (11.6 - 14.8 %) 14.3 Neut % (Auto) (50 - 75 %) 76.6 Lymph % (Auto) (25 - 40 %) 11.6 [place] % (Auto) (3 - 14 %) 11.0 Eos % (Auto) (0 - 4 %) 0.2 Baso % (Auto) (0 - 2 %) 0.6 Plt Count, EDTA (150 - 400 K/uL) 165 PUBS MCHC (31 - 37 g/dL) 34 Assessment and Plan Problem List 1. Generalized headaches Plan - most likely secondary to temporal arteritis - will continue with steoids - pt will follow up with his pmd and our hospital for the biopsy results 2. Temporal arteritis Plan - awaiting biopsy results 3. CHF (congestive heart failure) Plan - will c/w his home medications - no evidence of chf exacerbation
--- NOTE | 2016-10-14 16:05 | Discharge Summary ---
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 Patient was recently in the hospital for angiogram or his lower extremities with angioplasty for correction of his PAD. Patient tolerated the procedure well however after the procedure the patient began to notice that he was having occasional bouts of facial pain and a headaches that was unlike any headache he had in the past. Patient attmepted to take over the counter anelgesics for the headache and pain with little to no relief. Patient then began to notice that he was having vision changes that were different the glaucoma that he was experiencing. Patient became worried that this was something more severe and decided to come to the hospital. Patient is a poor historian and a lot of this information could not be corroborated with the family. Hospital Course Patient was admitted treated with Iv steroid and taken off of the blood thinner. Patient additionally had a unit of FFP given due to extensive ecchymosis and elevated INR. Patient had relief from the steroids and was able to manage indepentely. Patient then went for biopsy of this region and tolerated the procedure well. Patient will continue with steroids on a daily basis and continue with them for the next 2 weeks. Patient then will begin a steroid taper that will eventually go down to 1 mg a day. Time between dosing changes should be 2 weeks. Patient will need to follow up with his pmd, and will resume all his home medications. General Appearance Alert, Oriented X3, No acute distress HEENT PERRLA, - bilateral ecchymosis on the cheeks present on admission - surgical wound looks appropriate Lungs Clear to auscultation, Normal air movement Cardiovascular No murmurs, Gallops, - irregularly irregular rhythm Abdomen Soft, No tenderness Skin No Breakdown Lab/Imaging Laboratory Tests 10/14 0535 Chemistry Plasma Sodium (136 - 145 mmol/L) 140 Plasma Potassium (3.5 - 5.1 mmol/L) 4.3 Plasma Chloride (98 - 107 mmol/L) 108 CO2 (Enzymatic) (21 - 32 mmol/L) 21 BUN (7 - 18 mg/dL) 46 Creatinine (0.6 - 1.3 mg/dL) 1.4 Est GFR ( Amer) (mL/min) >60 Est GFR (Non-Af Amer) (mL/min) 50.72 Glucose (70 - 110 mg/dL) 120 Plasma Calcium (8.5 - 10.1 mg/dL) 8.7 Total Bilirubin (0.0 - 1.0 mg/dL) 0.4 AST (15 - 37 U/L) 31 ALT (12 - 78 U/L) 30 Alkaline Phosphatase (46 - 116 U/L) 57 Total Protein (6.4 - 8.2 g/dL) 6.2 Albumin (3.3 - 5.0 g/dL) 2.8 Coagulation INR (0.8 - 1.2) 1.2 Hematology WBC (4.5 - 11.5 K/uL) 4.0 RBC (4.50 - 5.90 M/uL) 2.85 Hgb (13.5 - 17.5 gm/dL) 9.7 Hct (41.0 - 53.0 %) 28.8 MCV (80 - 100 fL) 101 MCH (26 - 34 pg) 34 RDW (11.6 - 14.8 %) 14.3 Neut % (Auto) (50 - 75 %) 76.6 Lymph % (Auto) (25 - 40 %) 11.6 [place] % (Auto) (3 - 14 %) 11.0 Eos % (Auto) (0 - 4 %) 0.2 Baso % (Auto) (0 - 2 %) 0.6 Plt Count, EDTA (150 - 400 K/uL) 165 PUBS MCHC (31 - 37 g/dL) 34 Discharge Instructions/Meds - take medications as prescribed - resume all your home medications - follow the regular steroid taper
--- NOTE | 2016-10-14 16:30 | NUR ---
PT AMBULATED AROUND THE HALLWAY X'S 2 WITH WALKER. GAIT STEADY. NO S/S OF RESPIRATORY DISTRESS. WENT OVER DC INSTRUCTIONS WITH PT AND , GAVE PRESCRIPTIONS AND EDUCATION ABOUT CURRENT DIAGNOSIS. BOTH STATED UNDERSTANDING. ESCORTED OUT VIA WC TO PRIVATE CAR HOME.
== END 2016-10-14 16:30 | disposition home or self-care (01) ==
LOC: ED SRH 03:08 → TRANS SRH 08:47 → ACUTE2 SRH 08:47
PROVIDERS: Specialist; ADMIT Student in an Organized Health Care Education/Training Program
PROC: 30233K1 Transfusion of Nonautologous Frozen Plasma into Peripheral Vein, Percutaneous Approach (ICD-10-PCS; 2016-10-12)
PROC: 03BS0ZX Excision of Right Temporal Artery, Open Approach, Diagnostic (ICD-10-PCS; principal; 2016-10-14 12:15)
DX: R51 Headache (principal); R79.1 Abnormal coagulation profile; T45.515A Adverse effect of anticoagulants, initial encounter; I48.91 Unspecified atrial fibrillation; I10 Essential (primary) hypertension; E78.5 Hyperlipidemia, unspecified
CPT/HCPCS: 29229; 29230; 50004; 60001; 84038; 85241; 85244; 90001; 90074; 90100; 90155; 91585; 91643; 91672; 92132; 92720; 94001; 94060; 95059; 95150

== ENCOUNTER 2016-10-24 16:27 | Outpatient (CLI) | payer OTHER, MEDICARE ==
[~2016-10-24 16:27] MED LIST changes: +DELTASONE20 MG PO; +HYCET1 ML PO; +PREDNISONE20 MG PO; +PREDNISONE50 MG PO
--- NOTE | 2016-10-24 16:38 | ED NURSING NOTES ---
Clinical Report - Nurses [address] [place] [address] 10/24/2016 16:12 Patient: CONRAD MILTON TRIAGE Chief Complaint: (left eye pain). --16:35 Madeleine Hitchcock R.N. DISPOSITION / DISCHARGE Departure time: 16:10 Oct 24 2016. The patient left the Emergency Department before triage. The patient appears to be alert, oriented x4, coherent and in no acute distress. He stated is leaving the ED (needed only blood draw - sent by MD office). He left the Emergency Department ambulatory. ( walked patient to [facility] waiting room for labs). --16:36 Madeleine Hitchcock R.N. Locked/Released at 10/24/2016 17:35 by Madeleine Hitchcock R.N.
--- NOTE | 2016-10-24 16:38 | ED NURSING NOTES ---
Clinical Report - Nurses [address] [place] [address] 10/24/2016 16:12 Patient: CONRAD MILTON TRIAGE Chief Complaint: (left eye pain). --16:35 Madeleine Hitchcock R.N. DISPOSITION / DISCHARGE Departure time: 16:10 Oct 24 2016. The patient left the Emergency Department before triage. The patient appears to be alert, oriented x4, coherent and in no acute distress. He stated is leaving the ED (needed only blood draw - sent by MD office). He left the Emergency Department ambulatory. ( walked patient to [facility] waiting room for labs). --16:36 Madeleine Hitchcock R.N. Locked/Released at 10/24/2016 17:35 by Madeleine Hitchocck R.N.
--- NOTE | 2016-10-24 17:35 | ED MED RECONCILIATION SUMMARY ---
Patient: CONRAD MILTON Medication Reconciliation Report [facility] VisitID: [id number] [address] [place] [place] [address] 89y, M Registration Date/Time: 10/24/2016 Weight: (not available) Height/Length: (not available) BMI: (not available) ALLERGIES: The patient's Home Medications are listed below: Not obtained. The source(s) of the original Home Medication information: Not obtained. The following Medications were given to the patient in the Emergency Department: None. The following Medications were prescribed to the patient: None.
--- NOTE | 2016-10-24 17:35 | ED MAR SUMMARY ---
..... Medication Administration Record [place] [place], [place] [id number] Patient: CONRAD MILTON Visit ID: [id number] 89y, M Weight: (not available) Height/Length: (not available) BMI: (not available) ALLERGIES:
--- NOTE | 2016-10-24 17:35 | ED MAR SUMMARY ---
..... Medication Administration Record [place] [place], [place] [id number] Patient: CONRAD MILTON Visit ID: [id number] 89y, M Weight: (not available) Height/Length: (not available) BMI: (not available) ALLERGIES:
--- NOTE | 2016-10-24 17:35 | ED MED RECONCILIATION SUMMARY ---
Patient: CONRAD MILTON Medication Reconciliation Report [facility] VisitID: [id number] [address] [place] [address] 89y, M Registration Date/Time: 10/24/2016 Weight: (not available) Height/Length: (not available) BMI: (not available) ALLERGIES: The patient's Home Medications are listed below: Not obtained. The source(s) of the original Home Medication information: Not obtained. The following Medications were given to the patient in the Emergency Department: None. The following Medications were prescribed to the patient: None.
== END 2016-10-24 23:00 ==
LOC: LAB SRH 16:27
DX: M31.6 Other giant cell arteritis (principal)
CPT/HCPCS: 91585

== ENCOUNTER 2016-11-15 21:29 | Emergency (ER) | payer OTHER, MEDICARE ==
--- NOTE | 2016-11-16 00:39 | ED NURSING NOTES ---
Clinical Report - Nurses [facility] [address] [place] [address] 11/15/2016 21:29 Patient: CONRAD MILTON TRIAGE Triage time 22:00. Chief Complaint: SKIN RASH. --22:06 Mendoza Watson 22:00 11/15/16. BP: 200/101. HR: 67. RR: 22. O2 saturation: 95%. Temp: 98.8 F. Pain level now: 0/10. --22:06 Mendoza Watson Acuity: LEVEL 3. --22:06 Mendoza Watson Weight: 83 kg. Height/Length: 70 inches. BMI: 26.3. --22:03 Mendoza Watson Medications Alendronate Sodium Oral (Tablet 70 mg). Carvedilol Oral (Tablet 6.25 mg) 1 tablet, daily. Furosemide Oral 40 mg, daily. Losartan Potassium Oral 100 mg, daily. Plavix Oral 75 mg, daily. Pravastatin Sodium Oral 20 mg. Vitamin D Oral. Xarelto Oral (Tablet 10 mg) 1 tablet, daily. --22:03 Reed Watson. Allergies No Known Drug Allergy. --22:02 Reed Watson. History Arrived by private vehicle. Historian: patient. Accompanied by family. ( pt states he has surgery 1 month ago and now has a rash at the site). Reported as located on the right groin. It is described as painful. Treatment PUMPMAN: None. SOCIAL HX: Never smoker. Occasional alcohol use. No drug use. SELF HARM ASSESSMENT: A self harm assessment was performed. The patient answered "no" to the question "Have you recently felt down, depressed, or hopeless?", "Have you noticed less interest or pleasure in doing things?", "Do you have thoughts of harming or killing yourself?", "Are you here because you tried to hurt yourself?", "Have you ever tried to hurt yourself before today?", "Have you recently had thoughts about harming or killing others?" and "Do you have any dangerous items in your possession?". FALL RISK ASSESSMENT: Fall risk assessment completed. No fall risk identified. NUTRITIONAL RISK ASSESSMENT: The nutritional risk assessment revealed no deficiencies. FUNCTIONAL ASSESSMENT: Functional assessment: no impairments noted. LEARNING NEEDS ASSESSMENT: The learning needs assessment revealed no barriers. SKIN INTEGRITY ASSESSMENT: Skin integrity risk assessment completed. No skin integrity risk identified. --22:06 Mendoza Watson PROBLEMS: Atypical Chest Pain. Congestive Heart Failure. Vomiting. Cancer. Pneumonia. Changed Mental Status. Weakness. Atrial Fibrillation. Hypertension. Hypercholesterolemia. Glaucoma. --22:03 Reed Watson. ADDITIONAL SURGERIES: Adenoidectomy. Appendectomy. Dental Surgery. Knee Surgery. Neck Surgery. Tonsillectomy. --22:03 Mendoza Watson PHYSICAL ASSESSMENT Ambulatory to room. GENERAL / NEURO / PSYCH: Alert. Appears anxious. Oriented X 4. HEENT: Pupils equal, round and reactive to light. Mucous membranes are pink. RESPIRATORY: Breath sounds within normal limits. CVS: Capillary refill less than 2 seconds. Pulses within normal limits. GI / : Abdomen nontender. SKIN: Skin is non-tender. Increased warmth present in the right groin. Medium sized area of erythema present in the right groin. --22:32 Mendoza Watson NURSING PROGRESS NOTES Oxygen administered. Patient identifiers checked. Call light placed in reach. Side rails up x 1. Bed placed in lowest position. Brakes of bed on. --22:32 Mendoza Watson 22:45 11/15/2016 Site #1 started via IV in the right antecubital space with an 20g angiocath, with aseptic technique and good blood return; one attempt. Blood drawn: rainbow set. Labeled in the presence of the patient and sent to the lab. Saline lock flushed with 10 mL saline. --22:45 Mendoza Watson 23:55 11/15/16. BP: 139/65. HR: 72. RR: 20. O2 saturation: 99%. Temp: deferred. Pain level now: 0/10. --23:56 Mendoza Watson ( pt got up to the use the urinal and when he was getting back into bed he got two small skin tears on his left elbow below an already existing skin tear, cleaned area and applied 2x2 and secured with paper tape, pt tolerated well.). --00:13 Mendoza Watson DISPOSITION / DISCHARGE 00:48 11/16/2016 Site #1 removed upon discharge. Catheter intact. Bandage applied. --00:48 Mendoza Watson Departure time: 00:49. Condition at departure: stable. No learning barriers present. Discharge instructions provided and reviewed with the patient. Follow up contact number with PCP. Patient verbalized understanding. Written instructions provided in Faroese. No warning instructions, medication instructions, treatment instructions, referrals given to the patient or diet instructions. No activity restrictions, note given or stop smoking instructions. The patient was discharged by the physician underwriting assistant. He was discharged home and accompanied by spouse. He left the Emergency Department ambulatory and via private vehicle. Spouse driving. FALL RISK ASSESSMENT: Fall risk assessment completed. No fall risk identified. --00:49 Mendoza Watson 00:48 11/16/16. BP: deferred. HR: deferred. RR: deferred. O2 saturation: deferred. Temp: deferred. Pain level now: 0/10. --00:49 Mendoza Watson Locked/Released at 11/16/2016 0:49 by Mendoza Watson
--- NOTE | 2016-11-16 00:39 | ED ORDER SUMMARY ---
..... Patient: CONRAD MILTON OrderSheet [facility] VisitID: [id number] [address] [place] [address] 89y, M Registration Date/Time: 11/15/2016 ORDER SHEET Weight: 83.0 kg Allergies: No Known Drug Allergy GENERAL ORDERS: CBC w Diff Urgent (22:37 11/15/2016 EKoroleva P.A.-C) (Ack 22:40 SRedmond) (22:46 TBowen R.N.) CMP Urgent (22:37 11/15/2016 EKoroleva P.A.-C) (Ack 22:40 SRedmond) (22:46 TBowen R.N.) PTT Urgent (22:37 11/15/2016 EKoroleva P.A.-C) (Ack 22:40 SRedmond) (22:46 TBowen R.N.) PT with INR Urgent (22:37 11/15/2016 EKoroleva P.A.-C) (Ack 22:40 SRedmond) (22:46 TBowen R.N.) Vitals (23:20 11/15/2016 EKoroleva P.A.-C) (Ack 23:21 SRedmond) (0:11 TBowen R.N.) MEDICATION ORDERS: IV FLUIDS: ORDER SHEET NOTES: [Electronically signed by Blanca Mayes R.N. (00:49 11/16/2016)] [Electronically signed by Luz Cao P.A.-C (14:27 11/16/2016)] [Electronically locked/signed by Blanca Mayes R.N. (00:49 11/16/2016)]
--- NOTE | 2016-11-16 00:39 | ED NURSING NOTES ---
Clinical Report - Nurses [facility] [address] [place] [address] 11/15/2016 21:29 Patient: CONRAD MILTON TRIAGE Triage time 22:00. Chief Complaint: SKIN RASH. --22:06 Mendoza Watson 22:00 11/15/16. BP: 200/101. HR: 67. RR: 22. O2 saturation: 95%. Temp: 98.8 F. Pain level now: 0/10. --22:06 Mendoza Watson Acuity: LEVEL 3. --22:06 Mendoza Watson Weight: 83 kg. Height/Length: 70 inches. BMI: 26.3. --22:03 Mendoza Watson Medications Alendronate Sodium Oral (Tablet 70 mg). Carvedilol Oral (Tablet 6.25 mg) 1 tablet, daily. Furosemide Oral 40 mg, daily. Losartan Potassium Oral 100 mg, daily. Plavix Oral 75 mg, daily. Pravastatin Sodium Oral 20 mg. Vitamin D Oral. Xarelto Oral (Tablet 10 mg) 1 tablet, daily. --22:03 Reed Watson. Allergies No Known Drug Allergy. --22:02 Reed Watson. History Arrived by private vehicle. Historian: patient. Accompanied by family. ( pt states he has surgery 1 month ago and now has a rash at the site). Reported as located on the right groin. It is described as painful. Treatment VISUAL JOURNALIST: None. SOCIAL HX: Never smoker. Occasional alcohol use. No drug use. SELF HARM ASSESSMENT: A self harm assessment was performed. The patient answered "no" to the question "Have you recently felt down, depressed, or hopeless?", "Have you noticed less interest or pleasure in doing things?", "Do you have thoughts of harming or killing yourself?", "Are you here because you tried to hurt yourself?", "Have you ever tried to hurt yourself before today?", "Have you recently had thoughts about harming or killing others?" and "Do you have any dangerous items in your possession?". FALL RISK ASSESSMENT: Fall risk assessment completed. No fall risk identified. NUTRITIONAL RISK ASSESSMENT: The nutritional risk assessment revealed no deficiencies. FUNCTIONAL ASSESSMENT: Functional assessment: no impairments noted. LEARNING NEEDS ASSESSMENT: The learning needs assessment revealed no barriers. SKIN INTEGRITY ASSESSMENT: Skin integrity risk assessment completed. No skin integrity risk identified. --22:06 Mendoza Watson PROBLEMS: Atypical Chest Pain. Congestive Heart Failure. Vomiting. Cancer. Pneumonia. Changed Mental Status. Weakness. Atrial Fibrillation. Hypertension. Hypercholesterolemia. Glaucoma. --22:03 Reed Watson. ADDITIONAL SURGERIES: Adenoidectomy. Appendectomy. Dental Surgery. Knee Surgery. Neck Surgery. Tonsillectomy. --22:03 Mendoza Watson PHYSICAL ASSESSMENT Ambulatory to room. GENERAL / NEURO / PSYCH: Alert. Appears anxious. Oriented X 4. HEENT: Pupils equal, round and reactive to light. Mucous membranes are pink. RESPIRATORY: Breath sounds within normal limits. CVS: Capillary refill less than 2 seconds. Pulses within normal limits. GI / : Abdomen nontender. SKIN: Skin is non-tender. Increased warmth present in the right groin. Medium sized area of erythema present in the right groin. --22:32 Mendoza Watson NURSING PROGRESS NOTES Oxygen administered. Patient identifiers checked. Call light placed in reach. Side rails up x 1. Bed placed in lowest position. Brakes of bed on. --22:32 Mendoza Watson 22:45 11/15/2016 Site #1 started via IV in the right antecubital space with an 20g angiocath, with aseptic technique and good blood return; one attempt. Blood drawn: rainbow set. Labeled in the presence of the patient and sent to the lab. Saline lock flushed with 10 mL saline. --22:45 Mendoza Watson 23:55 11/15/16. BP: 139/65. HR: 72. RR: 20. O2 saturation: 99%. Temp: deferred. Pain level now: 0/10. --23:56 Mendoza Watson ( pt got up to the use the urinal and when he was getting back into bed he got two small skin tears on his left elbow below an already existing skin tear, cleaned area and applied 2x2 and secured with paper tape, pt tolerated well.). --00:13 Mendoza Watson DISPOSITION / DISCHARGE 00:48 11/16/2016 Site #1 removed upon discharge. Catheter intact. Bandage applied. --00:48 Mendoza Watson Departure time: 00:49. Condition at departure: stable. No learning barriers present. Discharge instructions provided and reviewed with the patient. Follow up contact number with PCP. Patient verbalized understanding. Written instructions provided in Greek. No warning instructions, medication instructions, treatment instructions, referrals given to the patient or diet instructions. No activity restrictions, note given or stop smoking instructions. The patient was discharged by the physician sales and marketing assistant. He was discharged home and accompanied by spouse. He left the Emergency Department ambulatory and via private vehicle. Spouse driving. FALL RISK ASSESSMENT: Fall risk assessment completed. No fall risk identified. --00:49 eMndoza Watson 00:48 11/16/16. BP: deferred. HR: deferred. RR: deferred. O2 saturation: deferred. Temp: deferred. Pain level now: 0/10. --00:49 Mendoza Watson Locked/Released at 11/16/2016 0:49 by Mendoza Watson
--- NOTE | 2016-11-16 00:39 | ED ORDER SUMMARY ---
..... Patient: CONRAD MILTON OrderSheet [facility] VisitID: [id number] [address] [place] [address] 89y, M Registration Date/Time: 11/15/2016 ORDER SHEET Weight: 83.0 kg Allergies: No Known Drug Allergy GENERAL ORDERS: CBC w Diff Urgent (22:37 11/15/2016 EKoroleva P.A.-C) (Ack 22:40 SRedmond) (22:46 TBowen R.N.) CMP Urgent (22:37 11/15/2016 EKoroleva P.A.-C) (Ack 22:40 SRedmond) (22:46 TBowen R.N.) PTT Urgent (22:37 11/15/2016 EKoroleva P.A.-C) (Ack 22:40 SRedmond) (22:46 TBowen R.N.) PT with INR Urgent (22:37 11/15/2016 EKoroleva P.A.-C) (Ack 22:40 SRedmond) (22:46 TBowen R.N.) Vitals (23:20 11/15/2016 EKoroleva P.A.-C) (Ack 23:21 SRedmond) (0:11 TBowen R.N.) MEDICATION ORDERS: IV FLUIDS: ORDER SHEET NOTES: [Electronically signed by Blanca Mayes R.N. (00:49 11/16/2016)] [Electronically signed by Luz Cao P.A.-C (14:27 11/16/2016)] [Electronically locked/signed by Blanca Mayes R.N. (00:49 11/16/2016)]
--- NOTE | 2016-11-16 00:39 | ED CLINICAL REPORT ---
Clinical Report - Physicians/Mid Levels [facility] [address] [place] [address] 11/15/2016 21:29 Patient: CONRAD MILTON Time Seen: 23:41 Apr 2016. Arrived- By private vehicle. Historian- patient. HISTORY OF PRESENT ILLNESS Chief Complaint: SKIN RASH. This started just prior to arrival and is still present. Not itchy, painful or burning. It has been located on the right lower extremity. No cause has been identified. (patient presents to the emergency department with a rash to his right lower extremity that he noted well today in the shower. Patient is status post vascular stripping of his right lower extremity with incision and is growing about one month previously at [place]. He has had no complications. No fevers or chills. He has had no rash. NO h/ o pe/dvt. No h/o recent illness. has been on xeralto and plavix for a few years from Dr. Fontenot). REVIEW OF SYSTEMS No sore throat, hoarseness or diarrhea. All systems otherwise negative, except as recorded above. PAST HISTORY Problems: Atypical Chest Pain. Congestive Heart Failure. Vomiting. Cancer. Pneumonia. Changed Mental Status. Weakness. Atrial Fibrillation. Hypertension. Hypercholesterolemia. Glaucoma. Additional Surgeries: Adenoidectomy. Appendectomy. Dental Surgery. Knee Surgery. Neck Surgery. Tonsillectomy. Medications: Alendronate Sodium Oral (Tablet 70 mg). Carvedilol Oral (Tablet 6.25 mg) 1 tablet, daily. Furosemide Oral 40 mg, daily. Losartan Potassium Oral 100 mg, daily. Plavix Oral 75 mg, daily. Pravastatin Sodium Oral 20 mg. Vitamin D Oral. Xarelto Oral (Tablet 10 mg) 1 tablet, daily. Allergies: No Known Drug Allergy. SOCIAL HISTORY Never smoker. Alcohol use. No drug use. ADDITIONAL NOTES The nursing notes have been reviewed. PHYSICAL EXAM Vital Signs: 11/15/2016 23:55 BP: 139/65. HR: 72. RR: 20. O2 saturation: 99%. Pain level now: 0/10. 11/15/2016 22:00 BP: 200/101. HR: 67. RR: 22. O2 saturation: 95%. Temp: 98.8 F. Pain level now: 0/10. Appearance: Alert. ENT: Ears normal. CVS: (irreg/irreg). Respiratory: No respiratory distress. Breath sounds normal. Skin: Skin warm. No tender indurated area. No cellulitis. Skin rash present- left forearm ecchymosis. Rash present on the right lower extremity (groin/ anterior thigh, inferior to incision site). The rash is erythematous and petechial. There is warmth. No lymphangitis, induration, weeping, rough texture like scarlatina or skin-line distribution like pityriasis rosea. No tenderness. Neuro: Oriented X 3. LABS, X-RAYS, AND EKG Laboratory Tests: CBC w Diff: (JULIAN: 11/15/2016 22:40) ( [facility] 11/15/[facility] 23:24) Final results Test Result Flag Units (Reference) WHITE BLOOD COUNT 7.6 K/uL (4.5-11.5) RED BLOOD COUNT 3.33 L M/uL (4.50-5.90) HEMOGLOBIN 11.2 L gm/dL (13.5-17.5) HEMATOCRIT 33.6 L % (41.0-53.0) MEAN CELL VOLUME 101 H fL (80-100) MEAN CORPUSCULAR HGB 34 pg (26-34) MEAN CORPUSCULAR HGB CONC 33 g/dL (31-37) RED CELL DISTRIBUTION WIDTH 14.4 % (11.6-14.8) PLATELET COUNT 189 K/uL (150-400) POLY % 56 % (50-75) BAND % 34 H % (0-8) LYMPH 8 L % (25-40) MONO 1 L % (3-14) EOSINOPHIL % 0 % (0-4) BASOPHIL % 1 % (0-2) METAMYELOCYTE % 0 % (0-1) MYELOCYTE 0 % (0-1) OTHER CELL TYPE 0 HYPOCHROMIA 1+ PT with INR: (JULIAN: 11/15/2016 22:40) ( [facility] 11/15/2016 22:58) Final results Test Result Flag Units (Reference) INR 2.1 H (0.8-1.2) Low Intensity Therapy: INR 1.5-2.0 PT range 18.5-23.1Mod.Intensity Therapy: INR 2.0-3.0 PT range 23.1-31.5High Intensity Therapy: INR 2.5-3.5 PT range 27.4-35.5High Intensity Therapy 2: INR 3.0-4.0 PT range 31.5-39.3 APTT 51 H SECONDS (24-34) CMP: (JULIAN: 11/15/2016 22:40) ( MsgRcvd 11/15/2016 23:05) Final results Test Result Flag Units (Reference) GLUCOSE 130 H mg/dL (70-110) BUN 36 H mg/dL (7-18) CREATININE 1.5 H mg/dL (0.6-1.3) Estimated GFR 46.84 mL/min Estimated GFR- 56.76 mL/min Note: Persistent reduction over 3 months in eGFR<60 mL/min/1.73 m2 defines CKD. Patients with eGFR values>=60 mL/min/1.73 m2 may also have CKD if evidence ofpersistent proteinuria. Additional information may be foundat www.kidney.org. SODIUM 137 mmol/L (136-145) POTASSIUM 4.8 mmol/L (3.5-5.1) CHLORIDE 103 mmol/L (98-107) CARBON DIOXIDE 24 mmol/L (21-32) CALCIUM 9.0 mg/dL (8.5-10.1) TOTAL PROTEIN 7.6 g/dL (6.4-8.2) ALBUMIN 3.6 g/dL (3.3-5.0) BILIRUBIN, TOTAL 0.8 mg/dL (0.0-1.0) ALKALINE PHOSPHATASE 69 U/L (46-116) AST (SGOT) 16 U/L (15-37) ALT (SGPT) 18 U/L (12-78) . PROGRESS AND PROCEDURES Course of Care: Patient currently on 0 as well as Plavix, which he has been on years, this is not new since surgery. His INR is elevated, unclear cause of such. Denies any liver disease. Patient evaluated with Dr. Valente in the emergency department. Patient with previous elevated INR at March 2016. Unclear cause, at this time may be chronic in nature. Patient is asked to be seen tomorrow. He understands and agrees with the plan. No other systemic disease process. Rashes not bilateral in nature. No fevers. Stable. No injury. He does have ecchymosis on the left arm, from previous. No osseous tenderness. Patient is stable. Patient/family counseled. Disposition: Discharged. Condition: good. CLINICAL IMPRESSION Petichial Dermatitis of the R. Groin. INSTRUCTIONS (Do not take Xeralto or PLAVIX until you see your DR tomorrow NEED TO BE SEEN TOMORROW If any sudden worsening return to the ER). Follow-up: Follow up with your doctor tomorrow. (Electronically signed by Luz Cao P.A.-C 11/16/2016 14:27)
--- NOTE | 2016-11-16 14:27 | ED MAR SUMMARY ---
..... Medication Administration Record [facility] [address] [place], [place] [id number] Patient: CONRAD MILTON Visit ID: [id number] 89y, M Weight: 83.0 kg Height/Length: 70 in BMI: 26.3 ALLERGIES: No Known Drug Allergy
--- NOTE | 2016-11-16 14:27 | ED MED RECONCILIATION SUMMARY ---
Patient: CONRAD MILTON Medication Reconciliation Report [facility] VisitID: [id number] [address] [place] [address] 89y, M Registration Date/Time: 11/15/2016 Weight: 83.0 kg Height/Length: 70 in. BMI: 26.3 ALLERGIES: No Known Drug Allergy The patient's Home Medications are listed below: THE FOLLOWING MEDICATIONS NEED TO BE RECONCILED: Alendronate Sodium Oral (70 mg) Carvedilol Oral (6.25 mg) 1 tablet, daily Furosemide Oral 40 mg, daily Losartan Potassium Oral 100 mg, daily Plavix Oral 75 mg, daily Pravastatin Sodium Oral 20 mg Vitamin D Oral Xarelto Oral (10 mg) 1 tablet, daily The source(s) of the original Home Medication information: Not obtained. The following Medications were given to the patient in the Emergency Department: None. The following Medications were prescribed to the patient: None.
--- NOTE | 2016-11-16 14:27 | ED DISCHARGE INSTRUCTIONS ---
Patient: CONRAD MILTON General Instructions [facility] VisitID: [id number] [address] [place] [place] [address] 89y, M Registration Date/Time: 11/15/2016 Petichial Dermatitis of the R. Groin. INSTRUCTIONS (Do not take Xeralto or PLAVIX until you see your DR tomorrow NEED TO BE SEEN TOMORROW If any sudden worsening return to the ER). Follow-up: Follow up with your doctor tomorrow. (Electronically signed by Luz Cao P.A.-C 11/16/2016 14:27)
--- NOTE | 2016-11-16 14:27 | ED MED RECONCILIATION SUMMARY ---
Patient: CONRAD MILTON Medication Reconciliation Report [facility] VisitID: [id number] [address] [place] [address] 89y, M Registration Date/Time: 11/15/2016 Weight: 83.0 kg Height/Length: 70 in. BMI: 26.3 ALLERGIES: No Known Drug Allergy The patient's Home Medications are listed below: THE FOLLOWING MEDICATIONS NEED TO BE RECONCILED: Alendronate Sodium Oral (70 mg) Carvedilol Oral (6.25 mg) 1 tablet, daily Furosemide Oral 40 mg, daily Losartan Potassium Oral 100 mg, daily Plavix Oral 75 mg, daily Pravastatin Sodium Oral 20 mg Vitamin D Oral Xarelto Oral (10 mg) 1 tablet, daily The source(s) of the original Home Medication information: Not obtained. The following Medications were given to the patient in the Emergency Department: None. The following Medications were prescribed to the patient: None.
--- NOTE | 2016-11-16 14:27 | ED DISCHARGE INSTRUCTIONS ---
Patient: CONRAD MILTON General Instructions [facility] VisitID: [id number] [address] [place] [address] 89y, M Registration Date/Time: 11/15/2016 Petichial Dermatitis of the R. Groin. INSTRUCTIONS (Do not take Xeralto or PLAVIX until you see your DR tomorrow NEED TO BE SEEN TOMORROW If any sudden worsening return to the ER). Follow-up: Follow up with your doctor tomorrow. (Electronically signed by Luz Cao P.A.-C 11/16/2016 14:27)
--- NOTE | 2016-11-16 14:27 | ED MAR SUMMARY ---
..... Medication Administration Record [facility] [address] [place], [place] [id number] Patient: CONRAD MILTON Visit ID: [id number] 89y, M Weight: 83.0 kg Height/Length: 70 in BMI: 26.3 ALLERGIES: No Known Drug Allergy
== END 2016-11-16 00:50 | disposition home or self-care (01) ==
LOC: ED SRH 21:29
DX: L30.9 Dermatitis, unspecified (principal); I10 Essential (primary) hypertension; E78.00 Pure hypercholesterolemia, unspecified; Z79.899 Other long term (current) drug therapy; Z79.02 Long term (current) use of antithrombotics/antiplatelets; Z79.01 Long term (current) use of anticoagulants
CPT/HCPCS: 90100; 91643; 94001; 94060; 95059